=== PATIENT | male | born 1980 | race Caucasian/White ===

== ENCOUNTER 2019-07-04 10:35 | Emergency (ER) | payer OTHER, SELFPAY ==
[~2019-07-04] VITALS: Ht 170.2 cm; Wt 77.0 kg
[2019-07-04 10:47] VITALS: BP 135/79
--- NOTE | 2019-07-04 10:56 | NUR ---
PATIENT BROUGHT BACK FROM TRIAGE WITH CHIEF COMPLAINT OF RIGHT HAND PAIN, STARTING 3-4 DAYS AGO. CMS INTACT
--- NOTE | 2019-07-04 11:59 | NUR ---
DISCHARGE INSTRUCITONS REVIEWED, NO QUESTIONS AT THIS TIME
== END 2019-07-04 12:00 | disposition home or self-care (01) ==
LOC: ED 11:05
DX: S62.364A Nondisplaced fracture of neck of fourth metacarpal bone, right hand, initial encounter for closed fracture (principal); X58.XXXA Exposure to other specified factors, initial encounter; Y93.89 Activity, other specified; Y92.009 Unspecified place in unspecified non-institutional (private) residence as the place of occurrence of the external cause; Y99.8 Other external cause status
CPT/HCPCS: 99283